=== PATIENT | male | born 1940 | race Caucasian/White ===

== ENCOUNTER 2021-03-16 08:33 | Outpatient (REF) | payer MEDICARE, SELFPAY | END 2021-03-16 08:34 | disposition home or self-care (01) | LOC: HO.LAB 08:33 | PROVIDERS: PCP Ophthalmology; Visit Provider Internal Medicine | DX: Z20.822 Contact with and (suspected) exposure to COVID-19 (principal) | CPT/HCPCS: C9803; U0003; U0005 ==

== ENCOUNTER 2024-08-30 09:50 | Outpatient (REF) | payer MEDICARE, SELFPAY ==
[2024-08-30 09:58] VITALS: BP 129/59; PULSE 62; RESP 16; TEMP 36.1; O2SAT 100; BMI 25.1
--- OUTSIDE RECORDS SUMMARY | 2024-08-30 10:45 | XMS_ITS | Patient Health Record ---
[facility] Address [address] [facility] [place] [address] Care Team Providers Care Senior Linux Administrator Name Role Phone Ron Perez MD Primary Care Provider Portia Vila Unavailable [phone] Allergies Allergen (clinical drug ingredient) Drug/Non Drug Allergy documented on EMR Reaction Allergy Type Onset Date Status hydrochlorothiazide hydroCHLOROthiazide rash Drug Aller gy Active Reason For Referral No Information Medications Medication SIG (Take, Route, Frequency, Duration) Notes Start Date End Date Status Ciclopirox Olamine 0.77 % 1 application Externally Twice a day for 30 days Active Allopurinol 300 MG TAKE 1 TABLET BY LIANNA TH EVERY DAY Oral for 90 Days Activ e Carbidopa-Levodopa 25-100 MG TAKE 1/2 TABLET BY MOUTH 3 TIMES A DAY , SPACE OVER WAKING HOURS, TAKE WITH MEALS Oral for 90 Days Active Valsartan-hydroCHLOROthiaz maria isabel 320-25 MG Oral for 90 Days Active Carvedilol 25 MG 1 tablet with food O rally Twice a day for 90 days Active Fondaparinux Sodium 7.5 MG/0.6ML as directed Subcutaneous for 30 days Active amLODIPine Benzoate Active Immunizations Vaccine Route Administration Date Status Comme nts Influenza Unknown 04/23/2023 Administered Social History Tobacco Use: Social History Observation Description Date Details (start date - stop date) Former Smoker NA - NA Tobacco Use/Smoking Question Answer Notes Are you a: former smoker Additional Findings: Tobacco Non-User Current no n-smoker Alcohol Screen Question Answer Notes Did you have a drink contain ing alcohol in the past year? Yes How often did you have a dri nk containing alcohol in the past year? 4 or more times a week (4 points) Points 4 Interpretation Positive Tobacco use other than smoking: Question Answer Notes Are you an other tobacco user? 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, with unspecified presence of clinical manifestation (I70.203) Active confirmed Vital Signs Blood pressure diastolic 62 mm Hg 06/08/2024 Height 5 ft 10 in in 06/08/2024 Blood pressure systolic 130 mm Hg 06/08/2024 Weight 170 lbs 06/08/2024 BMI 24.39 kg/m2 06/08/2024 Encounters Encounter Location Date Provider Diagnosis [address] [address] 11/26/2023 Portia Perica Atherosclerosis of telida artery of both lower extremities, with unspecified presence of clinical manifestation I70.203 ; Tinea pedis of both feet B35.3 ; Tinea unguium B35.1 ; Pain in right toe(s) M79.674 and Pain in left toe(s) M79.[address] [address] 03/09/2024 Portia Perica Atherosclerosis of telida artery of both lower extremities, with unspecified presence of clinical manifestation I70.203 ; Tinea pedis of both feet B35.3 ; Tinea unguium B35.1 ; Pain in right toe(s) M79.674 and Pain in left toe(s) M79.[address] [address] 06/08/2024 Portia Perica Atherosclerosis of telida artery of both lower extremities, with unspecified presence of clinical manifestation I70.203 ; Tinea pedis of both feet B35.3 ; Tinea unguium B35.1 ; Pain in right toe(s) M79.674 and Pain in left toe(s) M79.675 [facility] [address] [facility] [address] [place] [address] 02/16/2024 Portia Perica Assessments Encounter Date Diagnosis (ICD Code) Assessment Notes Treatment Notes Treatment Clinical Notes Section Notes 11/26/2023 Atherosclerosis of telida artery of both lower extremities, with unspecified presence of clinical manifestation (ICD-10 - I70.203) 11/26/2023 Tinea pedis of both feet (ICD-10 - B35.3) 03/09/2024 Atherosclerosis of telida artery of both lower extremities, with unspecified presence of clinical manifestation (ICD-10 - I70.203) 06/08/2024 Atherosclerosis of telida artery of both lower extremities, with unspecified presence of clinical manifestation (ICD-10 - I70.203) 06/08/2024 Tinea pedis of both feet (ICD-10 - B35.3) 03/09/2024 Tinea pedis of both feet (ICD-10 - B35.3) 03/09/2024 Tinea unguium (ICD-10 - B35.1) 11/26/2023 Tinea unguium (ICD-10 - B35.1) 11/26/2023 Pain in right toe(s) (ICD-10 - M79.674) 06/08/2024 Tinea unguium (ICD-10 - B35.1) 03/09/2024 Pain in right toe(s) (ICD-10 - M79.674) 06/08/2024 Pain in right toe(s) (ICD-10 - M79.674) 03/09/2024 Pain in left toe(s) (ICD-10 - M79.675) 11/26/2023 Pain in left toe(s) (ICD-10 - M79.675) 06/08/2024 Pain in left toe(s) (ICD-10 - M79.675) Plan Of Treatment Next Appt Details Provider Name:Portia livingston, 09/07/2024 09:30:00 AM, [address] [facility], [place], [address], Insurance Providers Payer Name Payer Address Payer Phone Subscriber Number Group Number Insured Name Patient Relationship to Insured Coverage Start Date Coverage End Date [employer] 65 Medicare Preferred [address] [place] [address] [phone] [id number] Jeffery Cruz Self - patient is the insured Medical (General) History Medical History History ICD Code Back,Hip,and Knee pain Cataracts covid-19 Gout High blood pressure Parkinsons disease Vascular grafts Measles Mumps Chicken pox Spinal stenosis blood clots Surgical History Surgery Date(Month/Year) abdominal aortic stent 2010
--- OUTSIDE RECORDS SUMMARY | 2024-08-30 10:45 | XMS_ITS | Clinical Summary ---
Author Organization [facility] Address [address] [place] [id number] Care Team Providers Care Senior Software Systems Engineer Name Role Phone Unavailable Primary Care Provider Unavailabl e Social History Tobacco Use Types Packs/Day Years Used Date Smoking Tobacco: Never Assessed Sex and Gender Information Value Date Recorded Sex Assigned at Not on file Legal Sex Male 3:20 PM EDT Gender Identity Not on file Sexual Orientation Not on file Plan of Treatment Health Maintenance Due Date Last Done Comments Hepatitis B Vaccine (1 of 3 - Risk 3-dose series) 2002 Influenza Vaccine (#1) 2024 , 02/29/2020, 05/28/2017, Additional history exists Pneumococcal Vaccine: 65+ Years Completed 06/13/2020, 11/08/2014, 12/18/2010 Insurance [facility]
--- OUTSIDE RECORDS SUMMARY | 2024-08-30 10:46 | XMS_ITS ---
Author Organization [facility] Address [address] [place] [address] Care Team Providers Care Vat Cleaner Name Role Phone Ana COBB, Ron Primary Care Provider Portia Vila [phone] Encounters Encounter Location Date Provider Diagnosis [address] [address] 03/10/2024 Portia Ortega Plan Of Treatment Next Appt Details Provider Name:Portia livingston, 09/07/2024 09:30:00 AM, [address] [place] [address], [phone], Progress Notes * Jeffery SANDOVAL WDOB:[birth year] (84 yo M)Acc No.[id number]:03/10/2024 Progress Note Patient:?JAIME Jeffery Sola Provider:?Portia Ortega DPM :1940???Age:83 Y???Sex:Male Jett e:03/10/2024 Address: [address] [id number] Pcp:Ron Perez MD Subjective: * Chief Complaints: * ??? * Medical History:? Objective: * Vitals:? Assessment: Plan: * Treatment: * Images: * The named appointment provid er may or may not be the originator of this progress note, and it is not deemed complete until electronically signed by the appointment provider. Sign off status: Pending * Provider:?Portia Ortega DPM Date:? Generated for Jg mehta/Francisca/Martha on:?08/30/2024 10:45 AM EDT
== END 2024-08-30 09:51 | disposition home or self-care (01) ==
LOC: HO.MS 09:50
PROVIDERS: PCP Internal Medicine; Visit Provider Ophthalmology
PROC: (CPT 66821; principal; 2024-08-30 13:30)
DX: H26.492 Other secondary cataract, left eye (principal)
CPT/HCPCS: 66821